=== PATIENT | female | born 1950 | race Caucasian/White ===

== ENCOUNTER → 2024-06-24 | Outpatient (CLI) | payer OTHER | LOC: MHCPAIN 10:12 | DX: M47.817 Spondylosis without myelopathy or radiculopathy, lumbosacral region (principal); Z98.1 Arthrodesis status; Z96.82 Presence of neurostimulator | CPT/HCPCS: J0665 ==

== ENCOUNTER → 2024-08-10 | Outpatient (CLI) | payer OTHER | LOC: MHCPAIN 10:01 | DX: M47.816 Spondylosis without myelopathy or radiculopathy, lumbar region (principal); M48.061 Spinal stenosis, lumbar region without neurogenic claudication; M54.50 Low back pain, unspecified; Z96.82 Presence of neurostimulator; Z98.1 Arthrodesis status | CPT/HCPCS: G0463 ==

== ENCOUNTER → 2024-09-02 | Outpatient (CLI) | payer OTHER ==
[~2024-09-02] MED LIST: Atropine 1 MG/10 ML SYRINGE IV ONE; Glycopyrrolate 0.2 MG/ML 1 ML VIAL ONE; Lidocaine PF 2% (20 MG/ML) 5 ML VIAL ONE; Midazolam 2 MG/2 ML VIAL ONE; Ondansetron 4 MG/2 ML VIAL ONE; ePHEDrine 50 MG/10 ML VIAL IV ONE; fentaNYL 50 MCG/ML 2 ML VIAL ONE
== END ==
LOC: MHCPAIN 07:19
DX: M47.817 Spondylosis without myelopathy or radiculopathy, lumbosacral region (principal); M54.50 Low back pain, unspecified; Z98.1 Arthrodesis status
CPT/HCPCS: J0461; J0665; J2250; J2405; J3010